=== PATIENT | female | born 1975 | race Caucasian/White ===

== ENCOUNTER 2021-09-25 16:07 | Emergency (ER) | payer SELFPAY ==
[2021-09-25 16:27] VITALS: BP 125/83; PULSE 85; RESP 18; TEMP 36.8; O2SAT 100
--- NOTE | 2021-09-25 17:31 | PC.NURSE ---
pt up to intake desk reporting she will come back if it gets worse . pt amb out of ed with steady gait and in no acute distress.
== END 2021-09-26 00:08 | disposition left against medical advice (07) ==
LOC: ANHED 17:50
DX: R10.2 Pelvic and perineal pain (principal)
CPT/HCPCS: 99199